=== PATIENT | female | born 1985 | race Caucasian/White ===

== ENCOUNTER 2018-03-17 19:16 | Emergency (ER) | payer OTHER ==
[2018-03-17] MEDS ORDERED: Ondansetron INJ* 2 MG/ML VIAL IV ONE (20:16)
[2018-03-17] MEDS ORDERED: Morphine VIAL* 10 MG/ML 1 ML VIAL IV ONE (20:16)
[2018-03-17] MEDS ORDERED: NS 0.9% 1000 ML* 1,000 ML IV ONE (20:16)
[2018-03-17] MEDS ORDERED: Morphine INJ* 4 MG/ML 1 ML SYRINGE (NEW SYRINGE VERSION) IV ONE (20:21)
[2018-03-17] MEDS ORDERED: Morphine INJ* 4 MG/ML 1 ML SYRINGE (NEW SYRINGE VERSION) ONE (20:25)
[2018-03-17 20:31] LABS: ABS Basophils 0 10^3/ul (0-0.2); ABS Eosinophils 0.1 10^3/ul (0-0.6); ABS Lymphocytes 2.3 10^3/ul (1.0-4.8); ABS Monocytes 0.5 10^3/ul (0-0.8); ABS Neutrophils 2.9 10^3/ul (1.5-7.7); ABS Nucleated RBC 0 10^3/ul; Eosinophil % 0.9 % (0-6); Hematocrit 37 % (35-47); Hemoglobin 12.6 g/dl (12.0-16.0); Lymphocyte % 39.3 % (25-47); Mean Corpuscular HGB Conc 34 g/dl (31-36); Mean Corpuscular Hemoglobin 29 pg (27-31); Mean Corpuscular Volume 85 fL (80-97); Mean Platelet Volume 8.2 um3 (7.4-10.4); Nucleated Red Blood Cells % 0.2; Platelet Count 260 10^3/ul (150-450); Red Blood Count 4.38 10^6/ul (4.00-5.40); Red Cell Distribution Width 14 % (10.5-15); White Blood Count 5.9 10^3/ul (3.5-10.8)
[2018-03-17 20:50] LABS: EGFR Non-African American 103.3 (>60)
[2018-03-17 21:01] LABS: Urine Appearance Turbid; Urine Blood 1+ (Negative); Urine Color Yellow; Urine Ketones Negative (Negative); Urine Protein Negative (Negative); Urine Red Blood Cell 1+(3-5/hpf) (Absent); Urine Specific Gravity 1.019 (1.010-1.030); Urine Urobilinogen Negative (Negative); Urine White Blood Cell 1+(6-10/hpf) (Absent)
--- NOTE | 2018-03-17 22:57 | RAD ---
EXAM: US Abdomen Limited, Right Upper Quadrant EXAM DATE/TIME: 03/17/2018 10:00 PM CLINICAL HISTORY: 32 years old, female; Pain; Abdominal pain; Epigastric; Additional info: +murphys TECHNIQUE: Real-time ultrasound of the abdomen with image documentation. Examination was focused on the right upper quadrant. COMPARISON: No relevant prior studies available. FINDINGS: Liver: The liver is diffusely echogenic consistent with fatty infiltration. No mass. Gallbladder: Unremarkable. No shadowing gallstones. No gallbladder wall thickening. Common bile duct: The common bile duct measures 3 mm, normal in size. Pancreas: Visualized pancreas is unremarkable. Right kidney: The right kidney measures 10.0 x 4.5 x 5.2 cm. No shadowing stones or hydronephrosis. IMPRESSION: No acute findings. No cholelithiasis. To contact [facility] with a general question: Operations Center - [phone] For direct physician to physician contact: Physician Hotline - [phone] [facility] ([facility] Facility ID #[id number])
[2018-03-18] MEDS ORDERED: Iohexol 300* (CONTRAST) 10 ML SDV IV ONE (00:09)
--- NOTE | 2018-03-18 01:44 | RAD ---
EXAM: CT Abdomen and Pelvis With Intravenous Contrast EXAM DATE/TIME: 03/18/2018 12:16 AM CLINICAL HISTORY: 32 years old, female; Pain; Abdominal pain; Prior surgery; Surgery type: Appendectomy, c sect TECHNIQUE: Axial computed tomography images of the abdomen and pelvis with intravenous contrast. All CT scans at this facility use at least one of these dose optimization techniques: automated exposure control; mA and/or kV adjustment per patient size (includes targeted exams where dose is matched to clinical indication); or iterative reconstruction. Coronal and sagittal reformatted images were created and reviewed. CONTRAST: 99 ml of OMNI 300 administered intravenously. COMPARISON: GB US GALL BLADDER 03/17/2018 9:30 PM FINDINGS: Lower thorax: There is mild bibasilar atelectatic change. ABDOMEN: Liver: Normal. No mass. Gallbladder and bile ducts: Normal. No calcified stones. No ductal dilation. Pancreas: Normal. No ductal dilation. Spleen: Normal. No splenomegaly. Adrenals: Normal. No mass. Kidneys and ureters: Normal. No hydronephrosis. Stomach and bowel: Normal. No obstruction. No mucosal thickening. Appendix: There are likely postoperative changes of appendectomy. PELVIS: Bladder: Unremarkable as visualized. Reproductive: Unremarkable as visualized. ABDOMEN and PELVIS: Intraperitoneal space: Normal. No free air. No significant fluid collection. Bones/joints: No acute fracture. No dislocation. Soft tissues: Unremarkable. Vasculature: Normal. No abdominal aortic aneurysm. Lymph nodes: There are borderline prominent right lower quadrant mesenteric lymph nodes suspicious for mild mesenteric adenitis. IMPRESSION: 1. There are borderline prominent right lower quadrant mesenteric lymph nodes suspicious for mild mesenteric adenitis. 2. No other acute CT pathology. To contact [facility] with a general question: Operations Center - [phone] For direct physician to physician contact: Physician Hotline - [phone] [facility] ([facility] Facility ID #[id number])
[2018-03-18] MEDS ORDERED: Ondansetron ODT TAB* 4 MG PO ONE (02:19)
[2018-03-18] MEDS ORDERED: Acetaminophen TAB* 325 MG PO ONE (02:19)
--- NOTE | 2018-03-18 02:19 | ED ---
Abdominal Pain/Female - HPI Summary HPI Summary: Patient complains of mid abdominal pain, N/V, diarrhea starting 5 days ago. Abdominal pain described as constant, dull with spikes, new onset. Patient also states history of heartburn with a lot of burping. Patient was guaiac positive at urgent care. Recent increase in stress. Denies fever, cough, sore throat, CP, SOB, change in urine, vaginal symptoms, PE. Medical history is none. Abdominal surgical history is appendectomy 2005. . Denies regular EtOH, HDL. - History of Current Complaint Chief Complaint: EDAbdPain Stated Complaint: ABD PAIN Time Seen by Provider: 03/17/18 20:02 Hx Obtained From: Patient Onset/Duration: Gradual Onset Timing: Constant Severity Initially: Moderate Severity Currently: Moderate Pain Intensity: 6 Pain Scale Used: 0-10 Numeric Location: Umbilical Radiates: No Character: Sharp, Dull Aggravating Factor(s): Nothing Alleviating Factor(s): Nothing Associated Signs and Symptoms: Positive: Decreased Appetite, Nausea, Vomiting, Diarrhea Allergies/Adverse Reactions: Allergies Allergy/AdvReac Type Severity Reaction Status Date / Time No Known Allergies Allergy Verified 03/17/18 19:21 PMH/Surg Hx/FS Hx/Imm Hx Endocrine/Hematology History: Denies: Hx Diabetes Cardiovascular History: Denies: Hx Cardiac Arrest, Hx Hypertension History: Denies: Hx Dialysis, Hx Renal Disease Neurological History: Denies: Hx CVA Infectious Disease History: No Infectious Disease History: Denies: Traveled Outside the [place] in Last 30 Days - Social History Alcohol Use: Occasionally Substance Use Type: Reports: None Smoking Status (MU): Never Smoked Tobacco Review of Systems Constitutional: Negative Eyes: Negative ENT: Negative Cardiovascular: Negative Respiratory: Negative Positive: Abdominal Pain, Vomiting, Diarrhea, Nausea Genitourinary: Negative Musculoskeletal: Negative Skin: Negative Neurological: Negative Psychological: Normal All Other Systems Reviewed And Are Negative: Yes Physical Exam - Summary Physical Exam Summary: Abdomen tender around the umbilicus, gastrium, right upper quadrant. Triage Information Reviewed: Yes Vital Signs On Initial Exam: Initial Vitals Temp Pulse Resp BP Pulse Ox 97.9 F 90 15 133/88 100 03/17/18 19:19 03/17/18 19:19 03/17/18 19:19 03/17/18 19:19 10/25/18 19:19 Vital Signs Reviewed: Yes Appearance: Positive: Well-Appearing Skin: Positive: Warm Head/Face: Positive: Normal Head/Face Inspection Eyes: Positive: Normal Neck: Positive: Supple Respiratory/Lung Sounds: Positive: Clear to Auscultation Cardiovascular: Positive: Normal Abdomen Description: Positive: Other: Musculoskeletal: Positive: Normal Neurological: Positive: Normal Psychiatric: Positive: Normal AVPU Assessment: Alert - Alex Coma Scale Best Eye Response: 4 - Spontaneous Best Motor Response: 6 - Obeys Commands Best Verbal Response: 5 - Oriented Coma Scale Total: 15 Diagnostics - Vital Signs Vital Signs Temp Pulse Resp BP Pulse Ox 03/17/18 23:42 68 92/58 100 03/17/18 23:41 70 92/62 100 03/17/18 23:11 75 86/56 98 03/17/18 23:00 69 97 03/17/18 22:41 85 102/63 98 03/17/18 22:11 78 120/70 100 03/17/18 22:10 77 114/71 99 03/17/18 22:09 75 100 03/17/18 21:11 67 108/68 99 03/17/18 21:00 72 97 03/17/18 20:41 81 120/70 98 03/17/18 20:34 16 03/17/18 20:19 97 99 03/17/18 19:19 97.9 F 90 15 133/88 100 - Laboratory Lab Results: Lab Results 03/17/18 03/17/18 03/17/18 Range/Units 20:03 20:21 20:21 WBC 5.9 (3.5-10.8) 10^3/ul RBC 4.38 (4.00-5.40) 10^6/ul Hgb 12.6 (12.0-16.0) g/dl Hct 37 (35-47) % MCV 85 (80-97) fL MCH 29 (27-31) pg MCHC 34 (31-36) g/dl RDW 14 (10.5-15) % Plt Count 260 (150-450) 10^3/ul MPV 8.2 (7.4-10.4) um3 Neut % (Auto) 50.2 (38-83) % Lymph % (Auto) 39.3 (25-47) % [place] % (Auto) 8.9 H (0-7) % Eos % (Auto) 0.9 (0-6) % Baso % (Auto) 0.7 (0-2) % Absolute Neuts (auto) 2.9 (1.5-7.7) 10^3/ul Absolute Lymphs (auto) 2.3 (1.0-4.8) 10^3/ul Absolute Monos (auto) 0.5 (0-0.8) 10^3/ul Absolute Eos (auto) 0.1 (0-0.6) 10^3/ul Absolute Basos (auto) 0 (0-0.2) 10^3/ul Absolute Nucleated RBC 0 10^3/ul Nucleated RBC % 0.2 Sodium 138 (135-145) mmol/L Potassium 3.9 (3.5-5.0) mmol/L Chloride 107 (101-111) mmol/L Carbon Dioxide 25 (22-32) mmol/L Anion Gap 6 (2-11) mmol/L BUN 13 (6-24) mg/dL Creatinine 0.67 (0.51-0.95) mg/dL Est GFR ( Amer) 125.0 (>60) Est GFR (Non-Af Amer) 103.3 (>60) BUN/Creatinine Ratio 19.4 (8-20) Glucose 92 (70-100) mg/dL Calcium 9.1 (8.6-10.3) mg/dL Total Bilirubin 0.30 (0.2-1.0) mg/dL AST 58 H (13-39) U/L ALT 31 (7-52) U/L Alkaline Phosphatase 54 (34-104) U/L C-Reactive Protein 4.93 (<8.01) mg/L Total Protein 6.9 (6.4-8.9) g/dL Albumin 4.3 (3.2-5.2) g/dL Globulin 2.6 (2-4) g/dL Albumin/Globulin Ratio 1.7 (1-3) Lipase 32 (11.0-82.0) U/L Beta HCG, Quant < 0.60 mIU/mL Urine Color Yellow Urine Appearance Turbid Urine pH 7.0 (5-9) Ur Specific [place] 1.019 (1.010-1.030) Urine Protein Negative (Negative) Urine Ketones Negative (Negative) Urine Blood 1+ A (Negative) Urine Nitrate Negative (Negative) Urine Bilirubin Negative (Negative) Urine Urobilinogen Negative (Negative) Ur Leukocyte Esterase Trace A (Negative) Urine WBC (Auto) 1+(6-10/hpf) A (Absent) Urine RBC (Auto) 1+(3-5/hpf) A (Absent) Ur Squamous Epith Cells Present A (Absent) Amorphous Crystals Present A (Absent) Urine Bacteria Absent (Absent) Urine Glucose Negative (Negative) Result Diagrams: 03/17/18 20:21 03/17/18 20:21 Lab Statement: Any lab studies that have been ordered have been reviewed, and results considered in the medical decision making process. Abdominal Pain Fem Course/Dx - Course Course Of Treatment: Patient complains of mid abdominal pain, N/V, diarrhea starting 5 days ago. Abdominal pain described as constant, dull with spikes, new onset. Patient also states history of heartburn with a lot of burping. Patient was guaiac positive at urgent care. Recent increase in stress. Denies fever, cough, sore throat, CP, SOB, change in urine, vaginal symptoms, PE. Medical history is none. Abdominal surgical history is appendectomy 2005. C- section. Denies regular EtOH, HDL. Physical exam:Abdomen tender around the umbilicus, gastrium, right upper quadrant. Vital signs within normal limits. Labs unremarkable. Positive UA. Ultrasound gallbladder negative. CT abdomen and pelvis positive for mesenteric adenitis. Rx for Bactrim, both adenitis and UTI. - Diagnoses Provider Diagnoses: Mesenteric adenitis, UTI (urinary tract infection) Discharge - Sign-Out/Discharge Documenting (check all that apply): Patient Departure - Discharge Plan Condition: Stable Disposition: HOME Prescriptions: Promethazine TAB* [Phenergan TAB*] 25 mg PO Q8H PRN 3 Days #10 tab PRN Reason: Nausea Sulfamethox/Trimethoprim DS* [Bactrim DS 800/160 TAB*] 1 tab PO BID 10 Days #20 tab Patient Education Materials: Urinary Tract Infection in Women (ED), Mesenteric Adenitis (ED) Referrals: No Primary Care Phys,NOPCP [Primary Care Provider] - Gato Leo MD [Medical Doctor] - Additional Instructions: Follow-up with primary care. Follow-up with GI Dr Leo for evaluation of possible IBS. Return to the ED for any new or worsening symptoms - Billing Disposition and Condition Condition: STABLE Disposition: Home
[2018-03-18 02:38] VITALS: BP 134/71
== END 2018-03-18 02:37 | disposition home or self-care (01) ==
LOC: ED 19:16
DX: I88.0 Nonspecific mesenteric lymphadenitis (principal); N39.0 Urinary tract infection, site not specified; R11.2 Nausea with vomiting, unspecified; R19.7 Diarrhea, unspecified
CPT/HCPCS: 36415; 74177; 76705; 80053; 81003; 81015; 83690; 84702; 85025; 86140; 87086; 96374; 96375; 99283; A9270-GY; J2270; J2405